=== PATIENT | female | born 1965 | race African-American/Black ===

== ENCOUNTER 2021-10-13 10:01 | Emergency (ER) | payer OTHER ==
[~2021-10-13] VITALS: Ht 162.6 cm; Wt 60.8 kg
[~2021-10-13 10:01] MED LIST: ACETAMINOPHEN-1 EAC1 PO; ESTRADIOL 1 MG T1 M1 PO; LEVOTHYROXIN0.025 MG PO; PROMETHAZINE D480 ML PO; PROMS25 WY RECTAL; TESSALON PERLE100 MG PO; ZOFRAN ODT4 MG PO
[2021-10-13 12:05] LABS: ABSOLUTE LYMPHOCYTES 2.1 thou/uL (0.8-5.3); ABSOLUTE MONOCYTES 0.3 thou/uL (0.0-1.2); ABSOLUTE NEUTROPHILS 0.9 thou/uL (1.6-8.1); BASOPHILS 1.2 %; EOSINOPHILS 0.2 %; HEMATOCRIT 41.6 % (37.0-47.0); HEMOGLOBIN 14.3 gm/dL (12.0-15.0); LYMPHOCYTES 61.5 %; MCH 30.6 pg (26.0-34.0); MCHC 34.4 g/dL (28.0-37.0); MCV 88.8 fL (80.0-100.0); MPV 9.7 fl. (7.2-11.1); NUCLEATED RBCS 0 /100WBC; PLATELET COUNT* 236 thou/uL (150-400); POLYS 28.1 %; RBC 4.69 mil/uL (4.20-5.00); RDW-CV 12.6 % (10.5-14.5); WBC 3.3 thou/uL (4.0-11.0)
[2021-10-13 12:13] LABS: CREATININE 0.8 mg/dL (0.6-1.3); POTASSIUM 3.4 mmol/L (3.5-5.1)
[2021-10-13 12:18] LABS: TOTAL BILIRUBIN 0.3 mg/dL (<0.1-1.0); TOTAL PROTEIN 8.6 g/dL (6.4-8.2)
[2021-10-13 13:30] LABS: URINE BLOOD TRACE (Negative); URINE CLARITY CLEAR; URINE COLOR YELLOW; URINE GLUCOSE-RANDOM NEGATIVE (Negative); URINE KETONES 1+ (Negative); URINE LEUKOCYTES NEGATIVE (Negative); URINE NITRITE NEGATIVE (Negative); URINE PROTEIN TRACE (Negative); URINE SPECIFIC GRAVITY >= 1.030 (1.005-1.030); URINE UROBILINOGEN 0.2 E.U./dl (0.2-1.0)
[2021-10-13 13:31] LABS: ICTOTEST (BILI CONFIRMATORY) Negative (Negative); URINE BILIRUBIN 1+ (Negative)
[2021-10-13] MEDS ORDERED: ZOFRAN ODT4 MG PO (13:48)
[2021-10-13 14:06] VITALS: BP 117/78
== END 2021-10-13 14:06 | disposition home or self-care (01) ==
LOC: M.ERS 10:01
PROVIDERS: Physician Assistant
DX: U07.1 COVID-19 (principal); R11.2 Nausea with vomiting, unspecified; R19.7 Diarrhea, unspecified; E86.0 Dehydration; E87.6 Hypokalemia; E03.9 Hypothyroidism, unspecified; Z79.899 Other long term (current) drug therapy